=== PATIENT | female | born 1945 | race Caucasian/White ===

== ENCOUNTER 2024-03-24 15:33 | Emergency (ER) | payer MEDICARE, BC ==
[~2024-03-24] VITALS: Ht 157.5 cm; Wt 115.2 kg
[~2024-03-24 15:33] MED LIST: ALBU2.5V7 NEB; APIX5TAB3 PO; BECL7.3A INH; BUPR-561 PO; FLUO60TA PO; LACT1CAP60 PO; LEVO50TA8 PO; MIRT-87 PO; TRAM50TA2 PO
[2024-03-24 16:27] LABS: BASOPHILS % (AUTO) 0.5 % (0-1); EOSINOPHILS # (AUTO) 0.1 X10'3 (0-0.9); HEMATOCRIT 40.9 % (35.0-45.0); HEMOGLOBIN 13.5 g/dl (12.0-16.0); LYMPHOCYTES # (AUTO) 1.5 X10'3 (1.1-4.8); LYMPHOCYTES % (AUTO) 20.2 % (21-51); MEAN CORPUSCULAR HEMOGLOBIN 30.3 PG (27.0-31.0); MEAN CORPUSCULAR HGB CONC 32.9 g/dL (33.0-36.5); MEAN CORPUSCULAR VOLUME 92.2 FL (78-98); MEAN PLATELET VOLUME 8.9 FL (7.4-10.4); MONOCYTES # (AUTO) 0.5 X10'3 (0-0.9); MONOCYTES % (AUTO) 6.8 % (2-12); NEUTROPHILS # (AUTO) 5.1 X10'3 (1.8-7.7); NEUTROPHILS % (AUTO) 70.5 % (42-75); PLATELET COUNT 209 X10'3 (140-440); RED BLOOD COUNT 4.44 X10'6 (4.20-5.60); RED CELL DISTRIBUTION WIDTH 15.1 % (11.5-14.5); WHITE BLOOD COUNT 7.3 X10'3 (4.5-11.0)
[2024-03-24] MEDS: morphine 2 MG/ML inj. syringe IV ONE (17:01)
[2024-03-24] MEDS: ondansetron/PF 4mg/2ml inj IV ONE ×2 (17:01→18:59)
[2024-03-24 17:07] LABS: ALBUMIN 3.2 G/DL (3.4-5.0); ANION GAP 7 (8-16); BLOOD UREA NITROGEN 22 MG/DL (7-18); BUN/CREATININE RATIO 18.2 (10.0-20.0); CALCIUM 8.9 MG/DL (8.5-10.1); CHLORIDE 103 MMOL/L (99-107); CREATININE 1.21 MG/DL (0.40-0.90); GLUCOSE 108 MG/DL (70-104); SODIUM 140 MMOL/L (135-145); TOTAL CARBON DIOXIDE 30.3 MMOL/L (24-32); eCRCL 29 ML/MIN; eGFR 43 ML/MIN
[2024-03-24 17:10] LABS: APTT 27 SECONDS (22-32); PROTHROMBIN TIME 11.1 SECONDS (9.0-12.0)
[2024-03-24] MEDS: HYDROmorphone/PF 0.2 MG/ML SYRINGE IV ONE (18:59)
[2024-03-24 20:39] VITALS: BP 135/50; PULSE 57; RESP 16; TEMP 97.7; O2SAT 94
== END 2024-03-24 20:45 | disposition home or self-care (01) ==
LOC: ER 15:33
DX: S01.112A Laceration without foreign body of left eyelid and periocular area, initial encounter (principal); J45.909 Unspecified asthma, uncomplicated; E03.9 Hypothyroidism, unspecified; F32.A Depression, unspecified; R40.4 Transient alteration of awareness; R79.1 Abnormal coagulation profile; M54.2 Cervicalgia; Z88.2 Allergy status to sulfonamides; Z88.5 Allergy status to narcotic agent; Z79.1 Long term (current) use of non-steroidal anti-inflammatories (NSAID); Z79.2 Long term (current) use of antibiotics; Z79.899 Other long term (current) drug therapy; Z98.890 Other specified postprocedural states; W05.0XXA Fall from non-moving wheelchair, initial encounter; Y93.89 Activity, other specified; Y92.89 Other specified places as the place of occurrence of the external cause; Y99.8 Other external cause status
CPT/HCPCS: 36415; 70450; 72125; 80048; 85025; 85610; 85730; 93005; 96374; 96375; 99285; J1170; J2405